=== PATIENT | female | born 1965 | race Caucasian/White ===

== ENCOUNTER 2019-12-16 20:00 | Outpatient (CLI) | payer OTHER, SELFPAY | END 2019-12-16 20:01 | disposition home or self-care (01) | LOC: SLEEP 12-17 08:34 | PROVIDERS: Visit Provider Family Medicine | DX: G47.33 Obstructive sleep apnea (adult) (pediatric) (principal) | CPT/HCPCS: 95810; 95811 ==

== ENCOUNTER 2020-12-20 10:00 | Outpatient (CLI) | payer OTHER, SELFPAY ==
--- NOTE | 2020-12-20 10:06 | MM_ITS ---
WS: [id number] DIAGNOSTIC BILATERAL DIGITAL MAMMOGRAM WITH CAD RIGHT breast ultrasound, limited HISTORY: RT BREAST LUMP COMPARISON: 11/08/2017 and 09/30/2013 TECHNIQUE: Bilateral craniocaudad, mediolateral oblique, and mediolateral views are submitted. Comput er aided detection utilized. Breast composition: There are scattered areas of fibroglandular density. Palpable marker is placed ne ar 6:00 of the RIGHT breast anteriorly. No underlying mass or distortion. No suspicious calcification s. Overall the breasts appear similar as compared to prior studies. RIGHT breast ultrasound, limited. RIGHT breast ultrasound directed palpable area. Palpable areas at 5:00, 2 cm from the nipple. There i s no underlying abnormality identified. Normal breast tissue. MM/[id number] IMPRESSION: BI-RADS: 2-Benign FOLLOW UP: 1 Year Follow-up
== END 2020-12-20 10:01 | disposition home or self-care (01) ==
LOC: RADSHAW 10:01
PROVIDERS: PCP Nurse Practitioner Family; Visit Provider Nurse Practitioner Family
DX: N63.13 Unspecified lump in the right breast, lower outer quadrant (principal)
CPT/HCPCS: 76642; 77066

== ENCOUNTER 2022-03-23 10:41 | Outpatient (CLI) | payer BC, SELFPAY ==
--- NOTE | 2022-03-23 10:48 | MM_ITS ---
WS: [id number] VIEWS: MLO and CC views both breasts. 3D digital tomosynthesis is also included in this exam. Comparison made with prior exam of 03/29/2006, 09/10/2013, 11/08/2017, 12/20/2020.. Findings: There was no sign of mass, architectural distortion or suspicious calcification in either breast. Sc attered fibroglandular densities MM/[id number] Impression: BI-RADS: 2-Benign FOLLOW-UP: 1 Year Follow-up This mammogram was also analyzed by the Computer Aided Detection System R2 Imag e Engineering Scientist.
== END 2022-03-23 10:42 | disposition home or self-care (01) ==
LOC: RAD 10:45
PROVIDERS: PCP Nurse Practitioner Family; Visit Provider Nurse Practitioner Family
DX: Z12.31 Encounter for screening mammogram for malignant neoplasm of breast (principal)
CPT/HCPCS: 77063; 77067

== ENCOUNTER → 2023-02-26 09:15 | Outpatient (BNVA) | payer BC, SELFPAY | PROVIDERS: Visit Provider Family Medicine | DX: I10 Essential (primary) hypertension (principal); R53.83 Other fatigue; E78.5 Hyperlipidemia, unspecified | CPT/HCPCS: 80053; 80061; 82043; 84443; 85025 ==

== ENCOUNTER 2023-03-26 08:39 | Outpatient (CLI) | payer BC, SELFPAY ==
--- NOTE | 2023-03-26 08:47 | MM_ITS ---
WS: [id number] VIEWS: MLO and CC views both breasts. 3D digital tomosynthesis is also included in this exam. Comparison made with prior exam of 09/10/2013, 11/08/2017, 12/20/2020 and 03/23/2022.. Findings: There was no sign of mass, architectural distortion or suspicious calcification in either breast. Th ere are scattered areas of fibroglandular density in both breasts MM/[id number] Impression: BI-RADS: 2 Benign findings FOLLOW-UP: 1 Year Follow-up This mammogram was also analyzed by the Computer Aided Detection System R2 Imag e Solutions Architect Consultant.
== END 2023-03-26 08:40 | disposition home or self-care (01) ==
PROVIDERS: PCP Family Medicine; Visit Provider Family Medicine
DX: Z12.31 Encounter for screening mammogram for malignant neoplasm of breast (principal)
CPT/HCPCS: 77063; 77067; 80053; 80061; 82043; 84443; 85025

== ENCOUNTER → 2023-06-24 10:18 | Outpatient (BNVA) | payer BC, SELFPAY | PROVIDERS: PCP Family Medicine; Visit Provider Nurse Practitioner Family | DX: R05.8 Other specified cough (principal) | CPT/HCPCS: 71046 ==

== ENCOUNTER → 2023-07-09 08:59 | Outpatient (BNVA) | payer BC, SELFPAY | PROVIDERS: PCP Family Medicine; Visit Provider Nurse Practitioner | DX: R39.9 Unspecified symptoms and signs involving the genitourinary system (principal); N39.0 Urinary tract infection, site not specified; N30.01 Acute cystitis with hematuria | CPT/HCPCS: 81000; 87077; 87086; 87184 ==

== ENCOUNTER → 2023-09-03 10:43 | Outpatient (BNVA) | payer BC, SELFPAY | PROVIDERS: PCP Family Medicine; Visit Provider Family Medicine | DX: E78.01 Familial hypercholesterolemia (principal); I10 Essential (primary) hypertension | CPT/HCPCS: 80053; 80061 ==

== ENCOUNTER 2025-04-26 13:07 | Emergency (ER) | payer OTHER, SELFPAY ==
--- OUTSIDE RECORDS SUMMARY | 2020-09-05 11:34 | XMS_ITS | Continuity of Care Document ---
Author Organization [facility] Address [address] [id number] [address] Phone Care Team Providers Care Rental Car Porter Name Role Phone Unavailable Unavailable Unavailable Allergies, Adverse Reactions, Alerts Substance Reaction Status Criticality ESCITALOPRAM OXALATE Active High Medications Medication Instructions Dosage Effective Dates (start - stop) Status Comments lisinopril 40 mg tablet take 1 tablet by oral route every day 40 MG - Active famotidine 20 mg tablet take 1 tablet by oral route every day 20 MG - Active melatonin 5 mg tablet take 1 tablet by oral route every bedtime 1 tablet - Active L-Lysine 500 mg tablet 2 tablets by mout h daily - Active Viibryd 40 mg tablet take 1 tablet by oral route every day with food 40 MG - Active bupropion HCl SR 100 mg tablet,12 hr sustained-release take 1 tablet by oral route 2 times every day 100 MG - Active hydrochlorothiazide 12.5 mg capsule take 1 capsule by oral route every day 12.5 MG - Active metoprolol tartrate 50 mg tablet take 1 tablet by oral route 2 times every day with meals 50 MG - Active alprazolam 0.25 mg tablet take 1 tablet by oral route as needed - Active Procedures Procedure Date OFFICE/OUTPATIENT VISIT, NEW Advance Directives Directive Yes / No Effective Date File Name No Information Encounters Encounter Description Practice Location Reason(s) For Visit Diagnoses Date Provider Providers Copied on Encounter [facility], [id number]- [facility], [place], [place], [id number], [place] tel:[phone] [facility] No Information 0 No Information OFFICE/OUTPAT IENT VISIT, [facility], [id number]- [facility], [facility], [place], [id number], [place] tel:[phone] [facility] depression (chief complaint) Depression 0 Aga Dunhamdy. [address] [place], [address], [place]. tel:[phone] Referring Provider: Racheal Yung, [address], [place], [address]. tel:[phone] Family History Family Member Type Diagnosis Age At Onset Problem Family history of cancer Problem Family history of cholestero l Problem Family history of Diabetes m martha Father Problem alcoholism Problem Family history of hypertensi on Mother Problem heart disease Payers Payer name Insurance type Covered libertarian ID leta hamlin(sukumar) [facility] [id number] Social History Type Description Quantity Date Captured Comments Alcohol Use Details Unknown Caffeine Use Details Unknown Tobacco Use Status No Information Smoking Status No Information Sex Female Sexual Orientation Heterosexual Gender Identity Female Chief Complaint And Reason For Visit No Information Reason For Referral Reason For Referral No Information History Of Present Illness Encounter Date Complaint History Of Prese nt Illness depression This is an initi al visit. The client presents with compulsive thoughts, depressed mood, difficulty concentrating, difficulty falling asleep, difficulty staying asleep, diminished interest or pleasure, feelings of guilt, feelings of invulnerability and racing thoughts but denies anxious/fearful thoughts, decreased need for sleep, fatigue or thoughts of or suicide. The client denies any vomiting. Additional information: [facility] RX bp meds for her. Pt states medications not helping for depression. Has tried several medications. Wanting referred to psychiatry and [facility] for counseling. Functional Status Date Functional Assessmen t No Information Instructions Date Instruction Additional Infor mation No Information Assessments Type Assessment Date No Information Patient Care Teams Name Effective Dates (start - stop) Status Members No Information
[2025-04-26 13:09] VITALS: BP 167/81; PULSE 56; TEMP 36.6; O2SAT 95; BMI 30.7
--- OUTSIDE RECORDS SUMMARY | 2025-04-26 13:22 | XMS_ITS | Encounter Summary ---
Author Organization [facility] Address [address] [place] [address] Care Team Providers Care Railroad Car Checker Name Role Phone Pepe oByd MD Primary Care Provider + Encounter Details Date Type Department Care Team (Latest Contact Info) Description 05/27/2001 Outpatient Historical [facility] Beck Krishnan NO ADDRESS ON FILE Gynecologic examination (Primary Dx); Screening for malignant neoplasm of the cervix; Unspecified essential hypertension; Family history of diabetes mellitus Social History Tobacco Use Types Packs/Day Years Used Date Smoking Tobacco: Never Assessed Comments Unknown Sex and Gender Information Value Date Recorded Sex Assigned at Not on file 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
--- OUTSIDE RECORDS SUMMARY | 2025-04-26 13:22 | XMS_ITS | Clinical Summary ---
Author Organization [facility] Address [address] [place] [address] Phone Care Team Providers Care Boilermaker Central Steam Plant Name Role Phone Peep Boyd MD Primary Care Provider + Social History Tobacco Use Types Packs/Day Years Used Date Smoking Tobacco: Never Assessed Comments Unknown Sex and Gender Information Value Date Recorded Sex Assigned at Not on file Legal Sex Female 3:40 AM DIRECTOR OF FOOD AND NUTRITION SERVICES Gender Identity Not on file Sexual Orientation Not on file Plan of Treatment Health Maintenance Due Date Last Done Comments DTAP/TDAP/TD VACCINES (1 - Tdap) 1982 HPV/Cotest (21-29) 1984 HPV/Cotest (30-65) 1993 BREAST CANCER SCREENING 2003 CERVICAL CANCER SCREENING 05/27/2004 PAP SMEAR 05/27/2004 05/27/2001 COLORECTAL SCREENING 2008 Colorectal Cancer Screening 2008 FIT-DNA Q 3 years 2008 FIT/FOBT Q 1 year 2008 Flex Sig/CT Colonography Q 5 years 2008 ZOSTER VACCINE (1 of 2) 2013 INFLUENZA VACCINE (#1) 2024 RSV VACCINE (60+ or ) (1 - 1-dose 75+ series) 2038 Insurance [employer] CHOICE PLUS Care Teams Boilermaker Central Steam Plant Relationship Specialty Start Date End Date Pepe Boyd MD [address] [place] [phone] PCP - General Family Practice 05/14/17
--- OUTSIDE RECORDS SUMMARY | 2025-04-26 13:22 | XMS_ITS | Encounter Summary ---
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
--- OUTSIDE RECORDS SUMMARY | 2025-04-26 13:22 | XMS_ITS | Clinical Summary ---
Author Organization [facility] Address [address] [place]: [place] [address] Care Team Providers Care Newsstand Vendor Name Role Phone Pepe Boyd MD Primary Care Provider + Social History Tobacco Use Types Packs/Day Years Used Date Smoking Tobacco: Never Assessed Comments Unknown Sex and Gender Information Value Date Recorded Sex Assigned at Not on file Legal Sex Female 3:19 PM WORM PICKER Gender Identity Not on file Sexual Orientation Not on file Plan of Treatment Health Maintenance Due Date Last Done Comments DTAP/TDAP/TD VACCINES (1 - Tdap) 1982 HPV/Cotest (21-29) 1984 CERVICAL CANCER SCREENING 1993 HPV/Cotest (30-65) 1993 PAP SMEAR 1993 BREAST CANCER SCREENING 2003 COLORECTAL SCREENING 2008 Colorectal Cancer Screening 2008 FIT-DNA Q 3 years 2008 FIT/FOBT Q 1 year 2008 Flex Sig/CT Colonography Q 5 years 2008 ZOSTER VACCINE (1 of 2) 2013 INFLUENZA VACCINE (#1) 2024 RSV VACCINE (60+ or ) (1 - 1-dose 75+ series) 2038 Care Teams Newsstand Vendor Relationship Specialty Start Date End Date Pepe Boyd MD [address] [facility] [address] [place] [phone] PCP - General Family Practice 05/14/17
--- NOTE | 2025-04-26 13:38 | XRR_ITS ---
PROCEDURE INFORMATION: Exam: XR Chest Exam date and time: 04/26/2025 1:45 PM Age: 59 years old Clinical indication: Pain; Angina pectoris; Abnormal ekg; Additional info: Chest pain TECHNIQUE: Imaging protocol: Radiologic exam of the chest. Views: 1 view. COMPARISON: CR XR chest 2V* [id number] 06/24/2023 10:25 AM FINDINGS: Lungs: Unremarkable. No consolidation. Pleural spaces: Unremarkable. No pleural effusion. No pneumothorax. Heart/Mediastinum: Unremarkable. No cardiomegaly. Bones/joints: Unremarkable. XR/XR chest 1V portable [id number] IMPRESSION: No acute findings.
--- NOTE | 2025-04-26 13:38 | ECG_ITS ---
[employer] Test Date: 2025-04-26 Pat Name: María Farias Department: Room: Gender: Female Orthopaedic General: : 1965 Requested By: Elia Abdi Order Number: [id number] Mickey MD: Kevin Oliveira M.D. Measurements Intervals [place] Rate: 53 P: 7 IA: 131 QRS: -22 QRSD: 102 T: -8 QT: 445 QTc: 421 Interpretive Statements SINUS BRADYCARDIA WITH OCCASIONAL VENTRICULAR PREMATURE COMPLEXES LOW QRS VOLTAGE IN PRECORDIAL LEADS [QRS DEFLECTION < 1.0 mV IN CHEST LEADS] ANTEROSEPTAL MYOCARDIAL INFARCTION , OF INDETERMINATE AGE [40+ ms Q WAVE IN V1-V4] Compared to ECG 06/27/2019 07:31:12 Ventricular premature complex(es) now present Low QRS voltage now present Myocardial infarct finding now present Sinus tachycardia no longer present T-wave abnormality no longer present Electronically Signed On 04-29-2025 09:08:12 CDT by Kevin Oliveira M.D. [email or web address]
--- NOTE | 2025-04-26 13:39 | ED_ITS ---
HPI - Recheck/Abnormal Lab/Rx 2 General: Chief Complaint: Recheck/Abnormal Lab/Rx Stated Complaint: abnormal ekg Time Seen by Provider: 04/26/25 13:37 History of Present Illness: 59-year-old female presents to the [facility] room referred here by clinic with report of an abnormal EKG. she is not having any symptoms no chest pain or discomfort no shortness of breath she has a little bit of a cough residual for which she had a cold about a week or 2 ago no hemoptysis no fever sweats or chills. Related Data Home Medications ?Medication ?Instructions ?Recorded ?Confirmed hydrochlorothiazide 12.5 mg tablet 12.5 mg PO DAILY 04/26/25 lisinopril 40 mg tablet 40 mg PO DAILY 04/26/2503/30 paroxetine HCl 20 mg tablet 20 mg PO DAILY 04/26/25 paroxetine HCl 30 mg tablet 30 mg PO DAILY 04/26/25 propranolol 20 mg tablet 20 mg PO TID 04/26/25 Previous Rx's ?Medication ?Instructions ?Recorded albuterol sulfate 90 mcg/actuation 2 puff inhalation Q ID #6.7 grams 06/24/23 aerosol inhaler (Ventolin HFA) evolocumab 140 mg/mL subcutaneous 140 mg SUBCUT .every 14 days #2 mL 12/24/23 pen injector (Repatha SureClick) Allergies Allergy/AdvReac Type Severity Reaction Status Date / Time Vbtkohq-VIL-IfL Reductase Allergy Intermediate pain in Verified 04/26/25 13:21 Inhibitor feet Review of Systems 2 Const: Denies: fever(s) or chills Card: Denies: chest pain Resp: Denies: dyspnea GI: Denies: abdominal pain : Denies: dysuria, urinary frequency or urinary urgency Musc: Denies: neck pain or back pain Skin/Breast: Denies: rash PFSH ED 2 PFSH: Medical History IVÁN (obstructive sleep apnea) On CPAP Diverticulosis GERD (gastroesophageal reflux disease) MDD (major depressive disorder) Dyslipidemia Essential (primary) hypertension Surgical History History of cone biopsy of cervix History of x 2 Family History Mother Hypertension Diabetes Cancer breast Father Cancer Social History Smoking and tobacco/nicotine status: never used tobacco/nicotine Physical Exam 2 Const: COMMON NORMALS: no acute distress GENERAL APPEARANCE: cooperative and comfortable ORIENTATION/CONSCIOUSNESS: Yes awake, Yes oriented to person, Yes oriented to place and Yes oriented to time HENMT: COMMON NORMALS: normocephalic, atraumatic and hearing grossly normal bilaterally HEAD & SCALP: normocephalic and atraumatic Resp: COMMON NORMALS: normal respiratory effort, No retractions, No use of accessory muscles and clear to auscultation bilaterally AUSCULTATION: clear to auscultation bilaterally Cardio: COMMON NORMALS: regular rate, regular rhythm and No murmurs present (Cardio) RATE: regular rate RHYTHM: regular rhythm GI: COMMON NORMALS: Soft to palpation and No hepatosplenomegaly present A USCULTATION: Yes normoactive bowel sounds PALPATION: Yes Soft to palpation, No Tenderness to palpation present (GI), No Guarding due to palpation present (GI) and Yes No hepatosplenomegaly present Extremity: COMMON NORMALS: normal to inspection, capillary refill normal, no clubbing, cyanosis or edema, no calf tenderness and no pedal edema Neuro: SENSORIUM/ORIENTATION: Yes oriented to person, Yes oriented to place and Yes oriented to time Skin: COMMON NORMALS: no rashes or lesions noted GENERAL SKIN EXAM: no rashes or lesions noted Course 2 Vital Signs: Vital signs: Vital Signs Temperature 97.8 F 04/26/25 13:09 Pulse Rate 56 L 04/26/25 13:09 Blood Pressure 167/81 04/26/25 13:09 Pulse Oximetry 95 04/26/25 13:09 Oxygen Delivery Me thod Room Air 04/26/25 13:09 MDM - Recheck/Abnormal Lab/Rx Medical Decision Making Patient is completely asymptomatic finding a right bundle branch block on her EKG we do not have anything new to compare to she has not had any chest pain Trope is normal rest of her labs are not abnormal. Can follow-up with her primary care no acute findings at this time. Medical Records I reviewed the patient's medical records. Lab Data I reviewed the patient's lab results. 04/26/25 13:54 04/26/25 13:54 Laboratory Results WBC 8.96 10^3/uL (3.29-11.43) 04/26/25 13:54 RBC 4.98 10^6/uL (3.85-5.65) 04/26/25 13:54 Hgb 14.60 g/dL (11.27-16.99) 04/26/25 13:54 Hct 44.7 % (36-47) 04/26/25 13:54 MCV 89.8 fl (85-98) 04/26/25 13:54 MCH 29.3 pg (27-33) 04/26/25 13:54 MCHC 32.7 g/dL (30-55) 04/26/25 13:54 RDW 12.5 % (12.1-15.1) 04/26/25 13:54 Plt Count 250 10^3/cmm (157-399) 04/26/25 13:54 MPV 10.8 fL (7.4-10.4) H 04/26/25 13:54 Neut % (Auto) 54.1 % 04/26/25 13:54 Lymph % (Auto) 33.9 % 04/26/25 13:54 [place] % (Auto) 8.5 % 04/26/25 13:54 Eos % (Auto) 2.6 % 04/26/25 13:54 Baso % (Auto) 0.7 % 04/26/25 13:54 Neut # (Auto) 4.85 10^3/uL (1.8-7.7) 04/26/25 13:54 Lymph # (Auto) 3.0 10^3/uL (0.8-4.8) 04/26/25 13:54 [place] # (Auto) 0.8 10^3/uL (0.2-0.9) 04/26/25 13:54 Eos # (Auto) 0.2 10^3/uL (0.0-0.8) 04/26/25 13:54 Baso # (Auto) 0.1 10^3/uL (0.0-0.1) 04/26/25 13:54 Nucleated RBC % (auto) 0 % 04/26/25 13:54 Nucleated RBCs # 0.0 /100WBC 04/26/25 13:54 Sodium 137 mmol/L (136-145) 04/26/25 13:54 Potassium 3.8 mmol/L (3.5-5.1) 04/26/25 13:54 Chloride 99 mmol/L (98-107) 04/26/25 13:54 Carbon Dioxide 26 mmol/L (22-29) 04/26/25 13:54 Anion Gap 15.8 (5-19) 04/26/25 13:54 BUN 13 mg/dL (8-23) 04/26/25 13:54 Creatinine 0.7 mg/dL (0.5-0.9) 04/26/25 13:54 GFR Calculation 85.1 mL/min (90-130) L 04/26/25 13:54 Glucose 90 mg/dL (65-115) 04/26/25 13:54 Calculated Osmolality 284 mOsm/kg (285-295) L 04/26/25 13:54 Calcium 9.0 mg/dL (8.5-10.5) 04/26/25 13:54 Total Bilirubin 0.5 mg/dL (0.15-1.2) 04/26/25 13:54 AST 14 U/L (0-32) 04/26/25 13:54 ALT 12 U/L (0-33) 04/26/25 13:54 Alkaline Phosphatase 66 U/L (35-105) 04/26/25 13:54 Troponin T Baseline < 6 ng/L (0-10) 04/26/25 13:54 Total Protein 6.8 g/dL (6.6-8.7) 04/26/25 13:54 Albumin 4.3 g/dL (3.5-5.2) 04/26/25 13:54 Globulin 2.5 g/dL (1.3-4.6) 04/26/25 13:54 All radiology interpretation(s) finalized by discharge EKG Data EKG 1: Interpretation: EKG April 26, 2025 1315 sinus bradycardia with PVCs rate of 53 NJ interval 131 QTc [address] changes noted has T wave inversion in V3 through V6. Incomplete right bundle branch block. No previous EKGs in our system to compare to EKG sent by clinic is unchanged from earlier today. Discharge Plan Discharge Patient Disposition: Home Clinical Impression: Incomplete RBBB Condition: Stable Prescriptions: No Action albuterol sulfate [Ventolin HFA] 90 mcg/actuation HFA aerosol inhaler 2 puff inhalation QID Qty: 6.7 0RF Repatha SureClick 140 mg/mL pen injector 140 mg SUBCUT .every 14 days Qty: 2 5RF paroxetine HCl 30 mg Tablet 30 mg PO DAILY paroxetine HCl 20 mg tablet 20 mg PO DAILY propranolol 20 mg tablet 20 mg PO TID lisinopril 40 mg tablet 40 mg PO DAILY hydrochlorothiazide 12.5 mg tablet 12.5 mg PO DAILY Discharge Orders: Discharge ED (Routine); Ordered 04/26/25 Ordered By: Elia Larson Referrals: Jessica Nicholson NP [Primary Care Provider, Nurse Practitioner] Discharge Diet: Usual diet Discharge Activity: Resume usual activity Patient Instructions: Opioid Safety, Pain Management, Patient Portal & Jemma Instructions Activity Restrictions/Additional Instructions: Thank you for choosing [facility] for your healthcare needs today. It is very important that you follow up as instructed or that you return to the Emergency Department should you have concerns or if your condition changes or worsens in any way. You are seen in the emergency room because of abnormal EKG EKG shows a incomplete bundle branch block but does not show any acute changes. Your initial heart enzyme was negative penchant since you are otherwise symptom-free no further workup needs to be done at this time. Does not appear to be any signs of acute coronary syndrome your electrolytes were normal and your liver functions were also normal follow-up with your primary care doctor regarding the episodes of nausea and vomiting. 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
[2025-04-26 14:00] LABS: Basophils # 0.1 10^3/uL (0.0-0.1); Basophils % 0.7 %; Eosinophils # 0.2 10^3/uL (0.0-0.8); Eosinophils % 2.6 %; Hematocrit 44.7 % (36-47); Lymphocytes % 33.9 %; Mean Corpuscular HGB Conc 32.7 g/dL (30-55); Mean Corpuscular Hemoglobin 29.3 pg (27-33); Mean Corpuscular Volume 89.8 fl (85-98); Mean Platelet Volume 10.8 fL (7.4-10.4); Monocytes # 0.8 10^3/uL (0.2-0.9); Monocytes % 8.5 %; Neutrophils # 4.85 10^3/uL (1.8-7.7); Neutrophils % 54.1 %; Nucleated Red Blood Cells % 0 %; Platelet Count 250 10^3/cmm (157-399); Red Blood Count 4.98 10^6/uL (3.85-5.65); Red Cell Distribution Width 12.5 % (12.1-15.1); White Blood Count 8.96 10^3/uL (3.29-11.43)
[2025-04-26 14:21] LABS: Alanine Aminotransferase 12 U/L (0-33); Albumin Level 4.3 g/dL (3.5-5.2); Alkaline Phosphatase 66 U/L (35-105); Anion Gap 15.8 (5-19); Aspartate Amino Transferase 14 U/L (0-32); Blood Urea Nitrogen 13 mg/dL (8-23); Carbon Dioxide 26 mmol/L (22-29); Chloride 99 mmol/L (98-107); Globulin 2.5 g/dL (1.3-4.6); Glomerular Filtration Rate 85.1 mL/min (90-130); Glucose 90 mg/dL (65-115); Osmolality Calculated 284 mOsm/kg (285-295); Potassium 3.8 mmol/L (3.5-5.1); Sodium 137 mmol/L (136-145); Total Bilirubin 0.5 mg/dL (0.15-1.2); Total Protein 6.8 g/dL (6.6-8.7)
[2025-04-26 14:23] LABS: Troponin(5th) Baseline < 6 ng/L (0-10)
--- NOTE | 2025-04-26 14:28 | PC.PHAR ---
Pt gets her medications through [facility]. Medications last filled locally was in 2022. Paroxetine dosage has increased but pt has not received yet and has not started.
[2025-04-26 14:51] VITALS: BP 151/90; PULSE 54; O2SAT 95
[2025-04-26 15:22] VITALS: BP 151/90; PULSE 54; O2SAT 97
== END 2025-04-26 15:23 | disposition home or self-care (01) ==
PROVIDERS: Emergency Provider Family Medicine; PCP Nurse Practitioner Family
DX: I45.19 Other right bundle-branch block (principal); E78.5 Hyperlipidemia, unspecified; I10 Essential (primary) hypertension
CPT/HCPCS: 36415; 71045; 80053; 84484; 85025; 93005; 99285